=== PATIENT | female | born 1980 | race Caucasian/White ===

== ENCOUNTER 2017-05-22 19:28 | Emergency (ER) | payer OTHER ==
[~2017-05-22] VITALS: Ht 154.9 cm; Wt 77.1 kg
[~2017-05-22 19:28] MED LIST: AMOCLA500 PO; AMOX875 PO; Antivert25 MG PO; Augmentin 875-1 EACH PO; BUPR75; Flonase 0.05% N16 GM; LORA10; Norco 5-325 Ta1 EACH PO; ONDA4ODT MM; OXYACE5T PO; OXYM.05NI; PROBIOTIC1 EAC1; Percocet 5-3251 EACH PO; Prednisone20 MG PO; Ultram50 MG PO; VENL25; Zantac150 MG PO
== END 2017-05-22 22:15 | disposition home or self-care (01) ==
LOC: ER 19:28
DX: S61.211A Laceration without foreign body of left index finger without damage to nail, initial encounter (principal); J45.909 Unspecified asthma, uncomplicated; Z79.899 Other long term (current) drug therapy; Z88.8 Allergy status to other drugs, medicaments and biological substances; Z90.710 Acquired absence of both cervix and uterus; Z98.890 Other specified postprocedural states; Z87.891 Personal history of nicotine dependence; W26.8XXA Contact with other sharp object(s), not elsewhere classified, initial encounter
CPT/HCPCS: 12001; 90471; 90714; 99283

== ENCOUNTER 2019-10-31 11:13 | Emergency (ER) | payer OTHER ==
[~2019-10-31] VITALS: Ht 154.9 cm; Wt 95.2 kg
[2019-10-31 11:59] LABS: BASOPHILS ABSOLUTE AUTO 0.08 K/mm3 (0.00-0.23); BASOPHILS PERCENT AUTO 1 % (0-2); EOSINOPHILS ABSOLUTE AUTO 0.15 K/mm3 (0.00-0.68); EOSINOPHILS PERCENT AUTO 2 % (0-6); Hematocrit 40.8 % (33.0-51.0); Hemoglobin 13.2 g/dL (11.5-16.0); IMMATURE GRAN ABSOLUTE AUTO 0.03 K/mm3 (0.00-0.10); IMMATURE GRAN PERCENT AUTO 0 % (0-1); LYMPHOCYTES ABSOLUTE AUTO 3.08 K/mm3 (0.84-5.20); LYMPHOCYTES PERCENT AUTO 37 % (21-46); MONOCYTES ABSOLUTE AUTO 0.58 K/mm3 (0.16-1.47); MONOCYTES PERCENT AUTO 7 % (4-13); Mean Corpuscular HGB 29.3 pg (26.0-34.0); Mean Corpuscular HGB Conc 32.4 g/dL (31.5-36.5); Mean Corpuscular Volume 91 fL (80-100); Mean Platelet Volume 11.1 fL (9.1-12.4); NEUTROPHILS PERCENT AUTO 53 % (41-73); Platelet Count 268 K/mm3 (150-400); RDW Coefficient Variation 13.2 % (11.7-14.2); RDW Standard Deviation 43.8 fL (35.1-46.3); White Blood Cell Count 8.42 K/mm3 (4.00-11.30)
[2019-10-31 12:16] LABS: Alanine Aminotransfer (ALT/SGP 59 U/L (12-78); Albumin, Blood 3.6 g/dL (3.4-5.0); Alk Phos 61 U/L (50-136); Anion Gap 5 mmol/L (6-16); Aspartate Aminotrans (AST/SGOT 28 U/L (12-37); Bilirubin, Total 0.3 mg/dL (0.1-1.0); Blood Urea Nitrogen 18 mg/dL (8-24); Bun/Creatinine Ratio 23.1 (12.0-20.0); CO2, Blood 24 mmol/L (21-32); Calcium, Blood 8.9 mg/dL (8.5-10.1); Chloride, Blood 109 mmol/L (98-108); Creatinine, Blood 0.78 mg/dL (0.40-1.00); Globulin, Blood 3.5 g/dL (2.2-4.0); Glomerular Filtration Rate >60 (60-); Glucose, Blood 113 mg/dL (70-99); Potassium, Blood 3.8 mmol/L (3.5-5.5); Sodium, Blood 138 mmol/L (136-145); Total Protein, Blood 7.1 g/dL (6.4-8.2); Troponin I 0.015 ng/mL (0.000-0.040)
[2019-10-31] MEDS ORDERED: IRON PO (13:56)
[2019-10-31] MEDS ORDERED: SERT50 PO (13:56)
[2019-10-31] MEDS ORDERED: ANDRODERM1 EAC2 TD (13:57)
[2019-10-31] MEDS ORDERED: Vitamin D2000 UNIT PO (13:57)
[2019-10-31] MEDS ORDERED: AZIT250 PO (16:15)
[2019-10-31] MEDS ORDERED: BENZ100A PO (16:15)
[2019-10-31] MEDS ORDERED: ALBU90OI6 INH (16:15)
[2019-10-31] MEDS ORDERED: Prednisone20 MG PO (16:15)
[2019-10-31] MEDS ORDERED: PSEU120ER PO (16:22)
== END 2019-10-31 16:38 | disposition home or self-care (01) ==
LOC: ER 11:13
PROVIDERS: Emergency Medicine
DX: J20.9 Acute bronchitis, unspecified (principal); Z88.8 Allergy status to other drugs, medicaments and biological substances; Z87.891 Personal history of nicotine dependence
CPT/HCPCS: 36415; 71046; 71260; 80053; 83880; 84484; 85025; 85379; 93005; 93010; 94640; 96374; 99285-25; J2930; Q9967; U0002

== ENCOUNTER 2020-06-18 10:06 | Emergency (ER) | payer OTHER ==
[~2020-06-18] VITALS: Ht 154.9 cm; Wt 81.7 kg
[~2020-06-18 10:06] MED LIST changes: +ALBU90OI6 INH; +ANDRODERM1 EAC2 TD; +AZIT250 PO; +BENZ100A PO; +DICY20 PO; +FEROSUL325 M1 PO; +HYDR1TAB94 PO; +IRON PO; +OMEP20ER PO; +PSEU120ER PO; +SERT50 PO; +TESTOSTERONE60 GM TD; +Vitamin D2000 UNIT PO
== END 2020-06-18 10:53 | disposition home or self-care (01) ==
LOC: ER 10:06
DX: H92.01 Otalgia, right ear (principal); Z88.8 Allergy status to other drugs, medicaments and biological substances; Z79.899 Other long term (current) drug therapy
CPT/HCPCS: 99284; J7512

== ENCOUNTER 2022-02-19 20:00 | Observation (INO) | payer OTHER, BC ==
[~2022-02-19] VITALS: Ht 154.9 cm; Wt 62.2 kg
[~2022-02-19 20:00] MED LIST changes: +B-12500 MC1 SL; +CARAFATE1 GM PO; +Cymbalta20 MG PO; +LORA10ER PO
--- NOTE | 2022-02-20 04:59 | NUR ---
SUMMARY: PATIENT WAS A DIRECT ADMIT TO THE UNIT 02/19/22 EVENING ADMITTED FOR INTRACTABLE ABDOMINAL PAIN. PERIPHERAL IV LINE PLACED UPON ARRIVAL TO UNIT. PATIENT REPORTS HER ABDOMEN IS TENDER AND SHE HAS PREVIOUSLY HAD DIAHHREA BUT HAS NOT BEEN EATING MUCH OF ANYTHING FOR THE PAST WEEK AND HAS NOT HAD ANY RECENT DIARRHEA. IV PROTONIX AND CARAFATE GIVEN. PATIENT CURRENTLY NPO. CT ABDOMEN WAS UNREMARKABLE. PATIENT HERE FOR A RULE OUT OF ABDOMINAL ULCERS. VSS, PATIENT AOX4. PROVIDED PATIENT HEATING PAD FOR MILD ABDOMINAL DISCOMFORT.
[2022-02-20 12:03] LABS: Influenza A, PCR NEGATIVE (NEGATIVE); Influenza B, PCR NEGATIVE (NEGATIVE); Resp Syncytial Virus, PCR NEGATIVE (NEGATIVE); SARS-Cov-2 (COVID-19) PCR, MMC NEGATIVE (NEGATIVE)
--- NOTE | 2022-02-20 12:09 | NUR ---
02/20/22 1209 Rosa Gross History, Chart, Medications and Allergies reviewed before start of procedure. HISTORY, CHART, MEDICATIONS AND ALLERGIES REVIEWED BEFORE START OF PROCEDURE. PATIENT CONFIRMS NPO STATUS AND AGREES WITH SCHEDULED PROCEDURE. 3-LEAD EKG REVIEWED WITH PHYSICIAN PRIOR TO START OF PROCEDURE. MONITOR INTACT WITH CONTINUOUS PULSE OXIMETRY,CAPNOGRAPHY, 3-LEAD EKG, INTERMITTENT BP. SUPPLEMENTAL O2 TO BE TITRATED THROUGHOUT PROCEDURE TO MAINTAIN O2 SATURATION ABOVE 90%. PATIENT DETERMINED TO BE ASA APPROPRIATE FOR PROPOFOL SEDATION PRIOR TO START OF PROCEDURE BY DR. ARTEAGA. MALLAMPATI CLASS 1 AIRWAY: COMPLETE VISULATIZATION OF THE SOFT PALATE.
--- NOTE | 2022-02-20 18:39 | NUR ---
SHIFT SUMMARY PT WENT FOR AN ENDOSCOPY TODAY, IRRITATION OF THE STOMACH LINNING WAS FOUND. PT PLACED ON FULL LIQUIDS AND OK TO BE RELEASED ONCE SHE CAN EAT WITHOUT PAIN. SHE SPOKE WITH THE DR AND IT WAS DECIDED SHE WOULD STAY THE NIGHT GIOVANI HELP MANAGE PAIN, RECIEVE FLUIDS, AND MONITOR EATING. SHE HAS TOLERATED DINNER. ONLY PAIN IS HEADACHE. PT STATES IT FEELS LIKE A DEHYDRATION HEADACHE. BED IN LOWEST POSITION AND CALL
--- NOTE | 2022-02-21 04:18 | NUR ---
SHIFT SUMMARY 41 YR F ADMITTED ON 02/19/22 FOR INTRACTABLE N/V. FULL CODE. NO ACUTE CHANGES THIS SHIFT. PT C/O HEADACHE AND WAS MEDICATED TWICE THIS SHIFT PER EMAR. SHE HAD HER CHILDREN AT BEDSIDE AT BEGINNING OF SHIFT. NO C/O N/V THIS SHIFT. NS RUNNING @100/HR. PT IS PLEASANT AND COOPERATIVE W/ CARE.
[2022-02-21] MEDS ORDERED: ALUM-MAG HYDRO360 M1 PO (13:16)
[2022-02-21] MEDS ORDERED: ALUMINUM H320 MG/5 M PO (13:17)
[2022-02-21] MEDS ORDERED: PANT40 PO (13:29)
--- NOTE | 2022-02-21 14:38 | NUR ---
DISCHARGE NOTE PATIENT IV REMOVED AND DISCHARGE INFORMATION GONE OVER. PT WAS TAKEN HOME BY COWORKER. SHE DISCHARGED AT 1345.
== END 2022-02-21 14:08 | disposition home or self-care (01) ==
LOC: MEDS 20:00
PROVIDERS: Student in an Organized Health Care Education/Training Program; ADMIT Internal Medicine
DX: K29.70 Gastritis, unspecified, without bleeding (principal); K31.89 Other diseases of stomach and duodenum; R63.0 Anorexia; J45.909 Unspecified asthma, uncomplicated; Z88.8 Allergy status to other drugs, medicaments and biological substances; Z79.899 Other long term (current) drug therapy; Z20.822 Contact with and (suspected) exposure to COVID-19
CPT/HCPCS: 0241U; 36415; 84484; 88305; 88342; 96372; A9270; C9113; G0378; G0379; J1650; J1885; J2704; J3010; J7030; J7120

== ENCOUNTER 2023-10-01 13:11 | Emergency (ER) | payer OTHER ==
[~2023-10-01] VITALS: Ht 154.9 cm; Wt 72.6 kg
[~2023-10-01 13:11] MED LIST changes: +ALUM-MAG HYDRO360 M1 PO; +ALUMINUM H320 MG/5 M PO; +PANT40 PO
[2023-10-01 13:37] VITALS: BP 129/86
[2023-10-01 13:54] LABS: BASOPHILS ABSOLUTE AUTO 0.09 K/mm3 (0.00-0.23); BASOPHILS PERCENT AUTO 1 % (0-2); EOSINOPHILS ABSOLUTE AUTO 0.09 K/mm3 (0.00-0.68); EOSINOPHILS PERCENT AUTO 1 % (0-6); Hematocrit 42.2 % (33.0-51.0); IMMATURE GRAN ABSOLUTE AUTO 0.03 K/mm3 (0.00-0.10); IMMATURE GRAN PERCENT AUTO 0 % (0-1); LYMPHOCYTES ABSOLUTE AUTO 2.18 K/mm3 (0.84-5.20); LYMPHOCYTES PERCENT AUTO 24 % (21-46); MONOCYTES ABSOLUTE AUTO 0.48 K/mm3 (0.16-1.47); MONOCYTES PERCENT AUTO 5 % (4-13); Mean Corpuscular HGB 29.2 pg (26.0-34.0); Mean Corpuscular HGB Conc 33.2 g/dL (31.5-36.5); Mean Corpuscular Volume 88 fL (80-100); Mean Platelet Volume 11.1 fL (9.1-12.4); NEUTROPHILS PERCENT AUTO 69 % (41-73); Platelet Count 263 K/mm3 (150-400); RDW Standard Deviation 38.9 fL (35.1-46.3); White Blood Cell Count 9.27 K/mm3 (4.00-11.30)
[2023-10-01 14:14] LABS: Albumin, Blood 3.9 g/dL (3.4-5.0); Albumin/Globulin Ratio 1.1 (0.8-1.8); Bilirubin, Total 0.5 mg/dL (0.1-1.0); Bun/Creatinine Ratio 13.1 (12.0-20.0); Calcium, Blood 8.9 mg/dL (8.5-10.1); Creatinine, Blood 0.84 mg/dL (0.40-1.00); Globulin, Blood 3.6 g/dL (2.2-4.0); Potassium, Blood 3.7 mmol/L (3.5-5.5); Total Protein, Blood 7.5 g/dL (6.4-8.2)
[2023-10-01 15:04] LABS: Source, Urine Clean Catch
[2023-10-01 15:34] LABS: Appearance, Urine Clear (Clear); Bilirubin, Urine Neg (Neg); Blood, Urine Neg (Neg); Color, Urine Yellow (P-Yellow); Glucose Qualitative, Urine Neg (Neg); Ketones, Urine 3+ (Neg); Leukocyte Esterase, Urine Neg (Neg); Nitrite, Urine Neg (Neg); Protein, Urine Neg (Neg); Urobilinogen, Urine NORM (Normal)
[2023-10-01] MEDS ORDERED: D5W-1/2NS 1,000 ML IV SCH (15:40)
[2023-10-01] MEDS ORDERED: Prochlorperazine Edisylate 10 mg Vial IV ONE (15:40)
[2023-10-01] MEDS ORDERED: PROM25 PO (18:09)
[2023-10-01] MEDS ORDERED: ONDA4ODT MM (18:09)
== END 2023-10-01 18:17 | disposition home or self-care (01) ==
LOC: ER 13:11
PROVIDERS: Emergency Medicine
DX: R11.2 Nausea with vomiting, unspecified (principal); J45.909 Unspecified asthma, uncomplicated; Z88.8 Allergy status to other drugs, medicaments and biological substances; Z79.899 Other long term (current) drug therapy
CPT/HCPCS: 80053; 81003; 81025; 83690; 85025; 96374; 99283-25; J0780; J7042

== ENCOUNTER 2024-07-12 07:36 | Emergency (ER) | payer SELFPAY ==
[~2024-07-12] VITALS: Ht 154.9 cm; Wt 72.6 kg
[~2024-07-12 07:36] MED LIST changes: +PROM25 PO
[2024-07-12] MEDS ORDERED: Ketorolac Tromethamine 15mg Vial IV ONE (09:05)
[2024-07-12 09:28] LABS: BASOPHILS ABSOLUTE AUTO 0.07 K/mm3 (0.00-0.23); BASOPHILS PERCENT AUTO 1 % (0-2); EOSINOPHILS ABSOLUTE AUTO 0.06 K/mm3 (0.00-0.68); EOSINOPHILS PERCENT AUTO 1 % (0-6); Hematocrit 40.5 % (33.0-51.0); Hemoglobin 13.6 g/dL (11.5-16.0); IMMATURE GRAN ABSOLUTE AUTO 0.03 K/mm3 (0.00-0.10); IMMATURE GRAN PERCENT AUTO 0 % (0-1); LYMPHOCYTES ABSOLUTE AUTO 1.57 K/mm3 (0.84-5.20); LYMPHOCYTES PERCENT AUTO 16 % (21-46); MONOCYTES ABSOLUTE AUTO 0.82 K/mm3 (0.16-1.47); MONOCYTES PERCENT AUTO 8 % (4-13); Mean Corpuscular HGB 29.8 pg (26.0-34.0); Mean Corpuscular HGB Conc 33.6 g/dL (31.5-36.5); Mean Corpuscular Volume 89 fL (80-100); NEUTROPHILS ABSOLUTE AUTO 7.42 K/mm3 (1.96-9.15); NEUTROPHILS PERCENT AUTO 75 % (41-73); Platelet Count 220 K/mm3 (150-400); RDW Coefficient Variation 12.8 % (11.7-14.2); RDW Standard Deviation 41.9 fL (35.1-46.3); Red Blood Cell Count 4.56 M/mm3 (3.80-5.20); White Blood Cell Count 9.97 K/mm3 (4.00-11.30)
[2024-07-12 09:57] LABS: Albumin, Blood 3.5 g/dL (3.4-5.0); Bilirubin, Total 0.6 mg/dL (0.1-1.0); Calcium, Blood 8.7 mg/dL (8.5-10.1); Creatinine, Blood 0.83 mg/dL (0.40-1.00); Globulin, Blood 3.5 g/dL (2.2-4.0); Potassium, Blood 3.6 mmol/L (3.5-5.5)
[2024-07-12] MEDS ORDERED: Ampicillin Sod/Sulbactam Sod 1.5 GM in NS 100 ML IV ONE (10:45)
[2024-07-12] MEDS ORDERED: AMOCLA875 PO (10:47)
[2024-07-12 11:40] VITALS: BP 157/87
== END 2024-07-12 11:48 | disposition home or self-care (01) ==
LOC: ER 07:36
PROVIDERS: Student in an Organized Health Care Education/Training Program
DX: K04.7 Periapical abscess without sinus (principal); J45.909 Unspecified asthma, uncomplicated; Z88.8 Allergy status to other drugs, medicaments and biological substances; Z79.899 Other long term (current) drug therapy; Z79.620 Long term (current) use of immunosuppressive biologic; Z87.891 Personal history of nicotine dependence
CPT/HCPCS: 70487; 80053; 85025; 96365-59; 96375; 99284-25; J0295; J1885; Q9967